=== PATIENT | female | born 1985 | race Caucasian/White ===

== ENCOUNTER 2024-07-20 23:26 | Emergency (ER) | payer SELFPAY ==
[~2024-07-20] VITALS: Ht 152.4 cm; Wt 77.0 kg
[2024-07-20 23:28] VITALS: BP 125/76; PULSE 78; RESP 16; O2SAT 100
[2024-07-21] MEDS ORDERED: ACET-2708 MT (00:46)
[2024-07-21 01:21] VITALS: TEMP 98.1
[2024-07-21] MEDS: ACETAMINOPHEN 325MG TABLET PO ONE (01:21)
[2024-07-21 02:14] LABS: HCG SCREEN NEGATIVE
== END 2024-07-21 01:26 | disposition home or self-care (01) ==
LOC: ER 23:26
DX: M25.511 Pain in right shoulder (principal)
CPT/HCPCS: 73030; 84703; 99284; A4565